=== PATIENT | male | born 1985 | race Caucasian/White ===

== ENCOUNTER 2020-04-26 12:52 | Emergency (ER) | payer OTHER ==
--- NOTE | 2020-04-26 12:54 | EDM.PDOC ---
ED HPI GENERAL MEDICAL PROBLEM - General Chief Complaint: Trauma Stated Complaint: Trauma Time Seen by Provider: 04/26/20 12:54 Source of Information: Reports: Patient, EMS, Family (, [id number]), Old Records ([facility] chart/EMR). Denies: EMS Notes Reviewed (Not available at time of dictation) History Limitations: Reports: No Limitations - History of Present Illness INITIAL COMMENTS - FREE TEXT/NARRATIVE: The patient was brought to the emergency room via ambulance with marine diesel mechanic accompaniment with saline lock placed prior to transfer with additional IV fentanyl 50 mcg x 2 during transfer with the last dose shortly prior to arrival to this facility. The patient was putting up [place] lights this afternoon at home when at about 12:20 PM he accidentally stepped off the roof falling about 10-12 feet per the family however 20 feet per the patient-? and landing on concrete on his right side. He denies any headaches, visual changes, loss of c onsciousness, change in mental status, paresthesias, neurological deficits, etc. He did complain of 10/10 right hip pain to the paramedics prior to transfer with pain medications given as above. His hip pain had improved to 7/10 at time of arrival. A dressing was also placed by the paramedics on the scene. The patient denies any chest pain/pressure, heart flutter, dizziness, orthostasis, orthopnea, diaphoresis, paresthesias, recent decreased exercise tolerance, or any other anginal-type symptoms. No recent history of abdominal pain, heartburn, nausea, diarrhea, melena, gross hematochezia, or any food intolerance, including fatty foods, etc.. The patient also denies any recent fever, wheezing, dyspnea, etc. with continually improving nonproductive cough. Note, however, that the patient just completed a 10-day quarantine on 04/21 secondary to testing positive for COVID-19 with his also tested positive for COVID-19 and coming off of quarantine yesterday. Onset: Today, Sudden Duration: Constant Location: Reports: Head (At laceration site), Pelvis, Upper Extremity, Right. Denies: Face, Neck, Chest, Abdomen, Back, Upper Extremity, Left, Lower Extremity, Left, Lower Extremity, Right, Radiates to Quality: Reports: Sharp Severity: Severe Improves with: Reports: Medication Worsens with: Reports: Movement Context: Reports: Trauma (As above) Associated Symptoms: Denies: Confusion, Chest Pain, Cough, cough w sputum, Diaphoresis, Fever/Chills, Headaches, Loss of Appetite, Nausea/Vomiting, Seizure, Shortness of Breath, Syncope, Weakness Treatments ENGINEERING MATHEMATICIAN: Reports: Dressing(s), IV/IO, Other Medication(s) (As above) Right Hip Pain Score (Numeric/FACES): 7 - Related Data Allergies Allergy/AdvReac Type Severity Reaction Status Date / Time No Known Allergies Allergy Verified 07/11/15 01:48 Home Meds: Home Meds Ibuprofen [Advil] 800 mg PO Q6H PRN 12/29/13 [History] Past Medical History HEENT History: Reports: Impaired Vision, Other (See Below) Other HEENT History: Patient wears glasses. Gastrointestinal History: Reports: Chronic Constipation, GERD. Denies: Cholelithiasis Genitourinary History: Reports: Other (See Below). Denies: Renal Calculus Other Genitourinary History: Negative work-up for urolithiasis on 12/29/2013 as below with no history of stone passage. Musculoskeletal History: Reports: Arthritis, Back Pain, Chronic, Fracture, Osteoarthritis, Other (See Below) Other Musculoskeletal History: Distal phalangeal fracture of digit #1 the left foot on 08/11/2012. Endocrine/Metabolic History: Reports: Other (See Below) Other Endocrine/Metabolic History: Right breast gynecomastia with negative biopsy as below. - Past Surgical History Female Surgical History: Reports: Breast Biopsy, Other (See Below) Other Female Surgeries/Procedures: Benign right breast biopsy on 05/16/97 for gynecomastia Male Surgical History: Reports: Circumcision, Other (See Below) Other Male Surgeries/Procedures: Circumcision as an . - Past Imaging History Past Imaging History: Reports: CAT Scan (Negative CT scan of the abdomen and pelvis without contrast for urolithiasis on 12/29/2013.), HIDA Scan (Negative HIDA scan on 01/03/2014.) Social & Family History - Tobacco Use Tobacco Use Status *Q: Never Tobacco User Used Tobacco, but Quit: No Smoking Cessation Information Provided To Patient: No Second Hand Smoke Exposure: No Second Hand Smoke Education Provided: No - Living Situation & Occupation Living situation: Reports: , with Family Review of Systems - Review of Systems Review Of Systems: Comprehensive ROS is negative, except as noted in HPI. ED EXAM, GENERAL - Physical Exam Exam: See Below Exam Limited By: Other (Mildly poor historian secondary to previous IV fentanyl as below) General Appearance: Alert, WD/WN, Mild Distress (Secondary to hip pain) Eye Exam: Bilateral Eye: EOMI, Normal Fundi, Normal Inspection (No nystagmus), PERRL Ears: Normal External Exam, Normal Canal, Hearing Grossly Normal, Normal TMs Nose: Normal Inspection, Normal Mucosa, No Blood Throat/Mouth: Normal Inspection, Normal Lips, Normal Teeth, Normal Gums, Normal Oropharynx, Normal Voice, No Airway Compromise. No: Dysphagia, Perioral Cyanosis Head: Atraumatic, Normocephalic. No: Facial Swelling, Facial Tenderness Neck: Normal Inspection, Supple, Non-Tender, Full Range of Motion. No: Lymphadenopathy (L), Lymphadenopathy (R), Thyromegaly Respiratory/Chest: No Respiratory Distress, Lungs Clear, Normal Breath Sounds, No Accessory Muscle Use, Chest Non-Tender. No: Pleural Rub, Retractions Cardiovascular: Normal Peripheral Pulses, Regular Rate, Rhythm, No Edema, No Gallop, No JVD, No Murmur, No Rub. No: Gallop/S3, Gallop/S4, Friction Rub GI/Abdominal: Normal Bowel Sounds, Soft, Non-Tender, No Organomegaly, No Distention, No Abnormal Bruit, No Mass, Pelvis Stable (Although some mild pelvic pain with palpation x1). No: Guarding (Male) Exam: Deferred Rectal (Males) Exam: Deferred Back Exam: Normal Inspection, Full Range of Motion. No: CVA Tenderness (L), CVA Tenderness (R), Muscle Spasm, Paraspinal Tenderness, Vertebral Tenderness Extremities: No Pedal Edema, Normal Capillary Refill, Leg Pain (Right hip external rotation without shortening), Limited Range of Motion (Right hip secondary to pain) Neurological: Alert, Oriented, CN II-XII Intact, Normal Cognition, Normal Reflexes, No Motor/Sensory Deficits. No: Normal Gait (Unable to bear weight secondary to open fracture) Psychiatric: Normal Affect, Normal Mood Skin Exam: Wound/Incision (4 cm in length irregular laceration over the right frontal region with no evidence of foreign body, crepitation, deformity, skull fracture, etc.. Additional 3 cm and 1 cm superficial abrasions over the right olecranon region.). No: Diaphoretic, Ecchymosis, Petechiae Lymphatic: No Adenopathy Course - Vital Signs Last Recorded V/S: See trauma sheet - Orders/Labs/Meds Orders: Active Orders 24 hr Category Date Time Status Cardiac Monitoring [RC] . DIRECTED Care 04/26/20 12:59 Active Communication Order [RC] ROUTINE Care 04/26/20 13:20 Active Oxygen Therapy, ED [RC] PRN Care 04/26/20 12:59 Active Peripheral IV Care [RC] . DIRECTED Care 04/26/20 12:59 Active Pulse Oximetry [RC] CONTINUOUS Care 04/26/20 12:59 Active Up With Assistance [RC] PFP Care 04/26/20 12:59 Active Vital Signs [RC] PFP Care 04/26/20 12:59 Active Nothing per Oral Now Diet [DIET] Diet 04/26/20 Breakfast Active Chest 1V Frontal [CR] Stat Exams 04/26/20 12:59 Taken Head wo Cont [CT] Stat Exams 04/26/20 12:59 Ordered Hip Min 2V or 3V w Pelvis Rt [CR] Stat Exams 04/26/20 12:54 Taken Lumbar Spine 1V [CR] Stat Exams 04/26/20 12:59 Ordered CULTURE URINE [RM] Urgent Lab 04/26/20 12:59 Ordered DRUG SCREEN, URINE [URCHEM] Stat Lab 04/26/20 12:59 Ordered UA W/MICROSCOPIC [URIN] Urgent Lab 04/26/20 12:59 Ordered Sodium Chloride 0.9% [Saline Flush] Med 04/26/20 12:59 Active 10 ml FLUSH ASDIRECTED PRN Obtain Past Medical Record [OM.PC] Urgent Oth 04/26/20 12:59 Active Peripheral IV Insertion Adult [OM.PC] Stat Oth 04/26/20 12:59 Ordered Resuscitation Status Stat Resus Stat 04/26/20 12:59 Ordered Medication Orders Sodium Chloride (Saline Flush) 10 ml FLUSH ASDIRECTED PRN PRN Reason: Keep Vein Open Labs: Laboratory Tests 04/26/20 04/26/20 04/26/20 Range/Units 13:00 13:00 13:00 WBC 12.7 H (4.0-10.2) K/uL RBC 4.81 (4.33-5.41) M/uL Hgb 14.1 (13.1-16.8) g/dL Hct 40.7 (39.0-49.0) % MCV 84.6 (84.0-98.0) fL MCH 29.3 (28.2-33.3) pg MCHC 34.6 (31.7-36.0) g/dL RDW 12.7 (11.2-14.1) % Plt Count 384 H D (150-350) K/uL Neut % (Auto) 50.7 (45.0-80.0) % Lymph % (Auto) 38.1 (10.0-50.0) % Pope % (Auto) 9.9 (2.0-14.0) % Eos % (Auto) 1.1 (0.0-5.0) % Baso % (Auto) 0.2 (0.0-2.0) % Neut # (Auto) 6.43 (1.40-7.00) K/uL Lymph # (Auto) 4.84 H (0.50-3.50) K/uL Pope # (Auto) 1.25 H (0.00-1.00) K/uL Eos # (Auto) 0.14 (0.00-0.50) K/uL Baso # (Auto) 0.03 (0.00-0.20) K/uL PT 10.5 (9.5-12.0) SEC INR 1.0 APTT 22.2 L (24.5-32.8) SEC Sodium 143 (136-145) mmol/L Potassium 3.2 L (3.5-5.1) mmol/L Chloride 105 (98-107) mmol/L Carbon Dioxide 25.8 (21.0-32.0) mmol/L BUN 11 (7-18) mg/dL Creatinine 1.09 (0.51-1.17) mg/dL Est Cr Clr Drug Dosing TNP Estimated GFR (MDRD) > 60 mL/min Glucose 137 H (74-106) mg/dL Lactic Acid (0.4-2.0) mmol/L Uric Acid 5.4 (2.6-7.2) mg/dL Calcium 8.9 (8.5-10.1) mg/dL Magnesium 1.9 (1.8-2.4) mg/dL Total Bilirubin 0.6 (0.2-1.0) mg/dL AST 28 (15-37) U/L ALT 35 (12-78) U/L Alkaline Phosphatase 58 (46-116) IU/L Creatine Kinase 230 (26-308) U/L Creatine Kinase Index 0.6 (0.0-2.5) % CK-MB (CK-2) 1.40 (0.00-3.60) ng/mL Troponin I 0.000 (0.000-0.056) ng/mL Total Protein 7.6 (6.4-8.2) g/dL Albumin 4.0 (3.4-5.0) g/dL Amylase 57 (25-115) U/L Lipase 127 (73-393) U/L Ethyl Alcohol 0.003 (0.000-0.080) g/dL 04/26/20 Range/Units 13:00 WBC (4.0-10.2) K/uL RBC (4.33-5.41) M/uL Hgb (13.1-16.8) g/dL Hct (39.0-49.0) % MCV (84.0-98.0) fL MCH (28.2-33.3) pg MCHC (31.7-36.0) g/dL RDW (11.2-14.1) % Plt Count (150-350) K/uL Neut % (Auto) (45.0-80.0) % Lymph % (Auto) (10.0-50.0) % Pope % (Auto) (2.0-14.0) % Eos % (Auto) (0.0-5.0) % Baso % (Auto) (0.0-2.0) % Neut # (Auto) (1.40-7.00) K/uL Lymph # (Auto) (0.50-3.50) K/uL Pope # (Auto) (0.00-1.00) K/uL Eos # (Auto) (0.00-0.50) K/uL Baso # (Auto) (0.00-0.20) K/uL PT (9.5-12.0) SEC INR APTT (24.5-32.8) SEC Sodium (136-145) mmol/L Potassium (3.5-5.1) mmol/L Chloride (98-107) mmol/L Carbon Dioxide (21.0-32.0) mmol/L BUN (7-18) mg/dL Creatinine (0.51-1.17) mg/dL Est Cr Clr Drug Dosing Estimated GFR (MDRD) mL/min Glucose (74-106) mg/dL Lactic Acid 2.8 H (0.4-2.0) mmol/L Uric Acid (2.6-7.2) mg/dL Calcium (8.5-10.1) mg/dL Magnesium (1.8-2.4) mg/dL Total Bilirubin (0.2-1.0) mg/dL AST (15-37) U/L ALT (12-78) U/L Alkaline Phosphatase (46-116) IU/L Creatine Kinase (26-308) U/L Creatine Kinase Index (0.0-2.5) % CK-MB (CK-2) (0.00-3.60) ng/mL Troponin I (0.000-0.056) ng/mL Total Protein (6.4-8.2) g/dL Albumin (3.4-5.0) g/dL Amylase (25-115) U/L Lipase (73-393) U/L Ethyl Alcohol (0.000-0.080) g/dL Meds: Medications Generic Name Dose Route Start Last Admin Trade Name Freq PRN Reason Stop Dose Admin Sodium Chloride 10 ml 04/26/20 12:59 Saline Flush FLUSH ASDIRECTED PRN Keep Vein Open Discontinued Medications Generic Name Dose Route Start Last Admin Trade Name Freq PRN Reason Stop Dose Admin Fentanyl 50 mcg 04/26/20 13:29 Sublimaze IVPUSH 04/26/20 13:30 ONETIME ONE Lactated Ringer's 1,000 mls @ 999 mls/hr 04/26/20 13:03 Ringers, Lactated IV 04/26/20 14:03 .BOLUS ONE Lorazepam 0.5 mg 04/26/20 13:48 Ativan IVPUSH 04/26/20 13:49 ONETIME ONE Ondansetron HCl 4 mg 04/26/20 13:28 Zofran IVPUSH 04/26/20 13:29 ONETIME ONE - Radiology Interpretation Free Text/Narrative:: air sampling and monitoring shows normal sinus rhythm with heart rate in the 80s to 90s with no ectopy or arrhythmia Chest x-ray, portable, shows no evidence of pulmonary infiltrates, pneumothorax, cardiomegaly, CHF, fractures, dislocations, etc. X-rays of the right hip and one view of the pelvis shows evidence of a horizontal mid ischiatic nondisplaced fracture with additional lower ischiatic displaced and comminuted fracture extending through the acetabulum with additional possible right pelvic ring fracture Departure - Departure Time of Disposition: 13:08 Disposition: DC/Tfer to [facility] Condition: Fair Clinical Impression: Trauma, Laceration, Abrasion, Elevated lactic acid level, Hypokalemia, Peptic reflux disease Pelvic fracture Qualifiers: Encounter type: initial encounter Pelvic bone location: ischium Fracture type: closed Fracture morphology: other fracture Laterality: right Qualified Code(s): S32.691A - Other specified fracture of right ischium, initial encounter for closed fracture Osteoarthritis Qualifiers: Osteoarthritis location: multiple joints Osteoarthritis type: primary Qualified Code(s): M89.49 - Other hypertrophic osteoarthropathy, multiple sites - Discharge Information *PRESCRIPTION DRUG MONITORING PROGRAM REVIEWED*: Not Applicable *COPY OF PRESCRIPTION DRUG MONITORING REPORT IN PATIENT NATHEN: Not Applicable Referrals: Luna France NP [Primary Care Provider] - Forms: ED Department Discharge, Interfacility Transfer EMTALA - Problem List & Annotations (1) Trauma SNOMED Code(s): 307279868 Code(s): T14.90XA - INJURY, UNSPECIFIED, INITIAL ENCOUNTER Status: Acute Priority: High Onset Date: 04/26/20 Annotation/Comment:: Trauma code called by the marine diesel mechanic on the scene secondary to mechanism of injury. In order to facilitate patient transfer immediate telephone consultation at 1:[address] Valderrama, emergency room physician at [facility] in [place], who is in agreement with our treatment plan with no further treatment recommendations given. He does agree to delay of CT scans of the abdomen and pelvis and possibly head until the patient's arrival to their facility. X-rays of the lumbar spine were also canceled secondary to plan CT scan as above with no local palpation pain in the spine or neck. Aggressive pain control in our emergency room, including an additional 50 mcg dose of fentanyl with additional 0.5 mg of IV Ativan with continued pain control by the paramedics in route. Note total dose of 150 mcg of fentanyl had been given to the patient prior to his transfer, including this facility and by the marine diesel mechanic as above. Ambulance transfer with marine diesel mechanic accompaniment. Vital signs and clinical exam were stable at time of transfer, including no neurological deficits, etc. (2) Pelvic fracture SNOMED Code(s): 31374770 Code(s): S32.9XXA - FRACTURE OF UNSP PARTS OF LUMBOSACRAL SPINE AND PELVIS, INIT Status: Acute Priority: High Onset Date: 04/26/20 Annotation/Comment:: Patient placed in a pelvic binder early in emergency room care. Aggressive pain control as above. Probable orthopedic consultation at time of patient's arrival to that facility. Aggressive IV fluids, including 1 L lactated Ringer's IV bolus in the emergency room with continuation of IV lactated Ringer's at 100 cc/h during transfer. Qualifiers: Encounter type: initial encounter Pelvic bone location: ischium Fracture type: closed Fracture morphology: other fracture Laterality: right Qualified Code(s): S32.691A - Other specified fracture of right ischium, initial encounter for closed fracture (3) Elevated lactic acid level SNOMED Code(s): 7322767 Code(s): R79.89 - OTHER SPECIFIED ABNORMAL FINDINGS OF BLOOD CHEMISTRY Status: Acute Priority: High Onset Date: 04/26/20 Annotation/Comment:: Elevated lactic acid level possibly secondary to stress reaction with mild leukocytosis but no fever or evidence of sepsis. Note recent completion of COVID-19 quarantine on 04/21 as above. Lactated Ringer's IV bolus initiated in route with continuation of IV LR at 100 cc/h during transfer after the initial bolus has been completed. Accepting providers to repeat lactic acid level within 3 hours after patient's arrival to the facility. (4) Laceration SNOMED Code(s): 871529885 Code(s): MRY7949 - Status: Acute Priority: High Onset Date: 04/26/20 Annotation/Comment:: Tetanus status unknown. Laceration repair by accepting providers. No tetanus given in our facility. Dressing left in place with no significant bleeding, etc. prior to transfer. (5) Abrasion SNOMED Code(s): 282983124 Code(s): T14.8XXA - OTHER INJURY OF UNSPECIFIED BODY REGION, INITIAL ENCOUNTER Status: Acute Priority: High Onset Date: 04/26/20 Annotation/Comment:: Minor right elbow abrasion as above with no evidence of significant elbow injury. (6) Hypokalemia SNOMED Code(s): 74703417 Code(s): E87.6 - HYPOKALEMIA Status: Acute Priority: Medium Onset Date: 04/26/20 Annotation/Comment:: Lactated Ringer's given as above. (7) Osteoarthritis SNOMED Code(s): 943911035 Code(s): M19.90 - UNSPECIFIED OSTEOARTHRITIS, UNSPECIFIED SITE Status: Chronic Priority: Medium Annotation/Comment:: Otherwise stable by history with no evidence of other injuries. Qualifiers: Osteoarthritis location: multiple joints Osteoarthritis type: primary Qualified Code(s): M89.49 - Other hypertrophic osteoarthropathy, multiple sites (8) Peptic reflux disease SNOMED Code(s): 203586179 Code(s): K21.9 - GASTRO-ESOPHAGEAL REFLUX DISEASE WITHOUT ESOPHAGITIS Status: Chronic Priority: Medium Annotation/Comment:: Stable by patient history - Problem List Review Problem List Initiated/Reviewed/Updated: Yes - My Orders Last 24 Hours: My Active Orders 04/26/20 Breakfast Nothing per Oral Now Diet [DIET] 04/26/20 12:54 Hip Min 2V or 3V w Pelvis Rt [CR] Stat 04/26/20 12:59 Cardiac Monitoring [RC] . DIRECTED Oxygen Therapy, ED [RC] PRN Peripheral IV Care [RC] . DIRECTED Pulse Oximetry [RC] CONTINUOUS Up With Assistance [RC] PFP Vital Signs [RC] PFP Chest 1V Frontal [CR] Stat Head wo Cont [CT] Stat Lumbar Spine 1V [CR] Stat CULTURE URINE [RM] Urgent DRUG SCREEN, URINE [URCHEM] Stat UA W/MICROSCOPIC [URIN] Urgent Sodium Chloride 0.9% [Saline Flush] 10 ml FLUSH ASDIRECTED PRN Obtain Past Medical Record [OM.PC] Urgent Peripheral IV Insertion Adult [OM.PC] Stat Resuscitation Status Stat 04/26/20 13:20 Communication Order [RC] ROUTINE - Assessment/Plan Last 24 Hours: My Active Orders 04/26/20 Breakfast Nothing per Oral Now Diet [DIET] 11/28/20 12:54 Hip Min 2V or 3V w Pelvis Rt [CR] Stat 04/26/20 12:59 Cardiac Monitoring [RC] . DIRECTED Oxygen Therapy, ED [RC] PRN Peripheral IV Care [RC] . DIRECTED Pulse Oximetry [RC] CONTINUOUS Up With Assistance [RC] PFP Vital Signs [RC] PFP Chest 1V Frontal [CR] Stat Head wo Cont [CT] Stat Lumbar Spine 1V [CR] Stat CULTURE URINE [RM] Urgent DRUG SCREEN, URINE [URCHEM] Stat UA W/MICROSCOPIC [URIN] Urgent Sodium Chloride 0.9% [Saline Flush] 10 ml FLUSH ASDIRECTED PRN Obtain Past Medical Record [OM.PC] Urgent Peripheral IV Insertion Adult [OM.PC] Stat Resuscitation Status Stat 04/26/20 13:20 Communication Order [RC] ROUTINE Assessment:: As above Plan: As above. Extensive precautions were given to the patient and his family, who are in agreement with the treatment plan. Ambulance transfer with marine diesel mechanic accompaniment.
[2020-04-26] MEDS ORDERED: Sodium Chloride 0.9% 10 ML Syringe FLUSH PRN (12:59)
[2020-04-26] MEDS ORDERED: Lactated Ringers 1,000 ML IV ONE (13:03)
[2020-04-26 13:19] LABS: PTT,PARTIAL THROMBOPLSTIN TIME 22.2 SEC (24.5-32.8)
[2020-04-26] MEDS ORDERED: Ondansetron 4 MG/2 ML SDV IVPUSH ONE (13:28)
[2020-04-26] MEDS ORDERED: fentaNYL 100 MCG/2 ML SDV IVPUSH ONE (13:29)
[2020-04-26 13:34] LABS: CHLORIDE,CL 105 mmol/L (98-107); SODIUM,NA 143 mmol/L (136-145)
[2020-04-26] MEDS ORDERED: fentaNYL 100 MCG/2 ML SDV ONE (13:35)
[2020-04-26] MEDS ORDERED: LORazepam 2 MG/ML SDV ONE (13:35)
[2020-04-26] MEDS ORDERED: Ondansetron 4 MG/2 ML SDV ONE (13:35)
[2020-04-26] MEDS ORDERED: LORazepam 2 MG/ML SDV IVPUSH ONE (13:48)
== END 2020-04-26 14:00 ==
LOC: LL.ED 12:52
DX: S32.691A Other specified fracture of right ischium, initial encounter for closed fracture (principal); S01.01XA Laceration without foreign body of scalp, initial encounter; S50.311A Abrasion of right elbow, initial encounter; M89.49 Other hypertrophic osteoarthropathy, multiple sites; R74.02 Elevation of levels of lactic acid dehydrogenase [LDH]; E87.6 Hypokalemia; K21.9 Gastro-esophageal reflux disease without esophagitis; W13.2XXA Fall from, out of or through roof, initial encounter; Y92.009 Unspecified place in unspecified non-institutional (private) residence as the place of occurrence of the external cause
CPT/HCPCS: 36415; 71045; 80053; 80307; 82150; 82550; 82553; 83605; 83690; 83735; 84484; 84550; 85025; 85610; 85730; 96361; 96374; 96375; 99284; 99285-25; J2060; J2405; J3010